=== PATIENT | male | born 1980 | race Caucasian/White ===

== ENCOUNTER 2016-09-19 21:50 | Emergency (ER) | payer OTHER ==
--- NOTE | ~2016-09-19 | EKG ---
PATIENT: DHAVAL DE LEON UNIT #: [id number] Ventricular Rate: 118 BPM Atrial Rate: 118 BPM P-R Interval: 132 ms QRS Duration: 106 ms Q-T Interval: 328 ms QTC Calculation(Bezet): 459 ms P Darrow: 45 degrees Calculated R Darrow: 10 degrees Calculated T Darrow: 35 degrees Diagnosis Line: Sinus tachycardia Diagnosis Line: Otherwise normal ECG Diagnosis Line: No previous ECGs available Diagnosis Line: Confirmed by JUNIOR DIAZ MD ([id number]) on Diagnosis Line: 09/20/2016 9:39:49 PM INTERPRETING MD: EMILY MATTHEWS
--- NOTE | ~2016-09-19 | CR63 ---
[facility] A Service of [facility] RADIOLOGY TEXT RESULTS PATIENT: DHAVAL DE LEON LOCATION: [facility] : 84 UNIT #: [id number] AGE: [address]: Pj Resendez MD SEX: M ORDER DR: [id number] [facility] [address] [place], [place] [address] [id number] MR#: [id number] Acc #: [id number] NAME: DHAVAL DE LEON : 1980 SEX: M STUDY DATE/TIME: 09/19/2016 22:34 UNIT: [facility] ROOM: STUDY DESCRIPTION: CR Chest 2 View Attending Physician: Pj Resendez M.D. Ordering Physician: Pj Resendez M.D. Primary Care Physician: No Primary Care Physician MEDICAL IMAGING REPORT This report is preliminary unless electronic signature is present EXAM Chest PA and lateral 09/19/2016 HISTORY Cough and cold symptoms for 1 week. Chest congestion. Smoking history for over 10 years. FINDINGS PA and lateral examination of the chest upright shows a good expansion of the parenchyma with a normal distribution of the pulmonary vascularity. There is no indication of congestion, effusion, infiltrate, tumor, or nodular density. The pleural reflections and diaphragmatic contours are normal. The cardiac silhouette and mediastinal anatomy is within normal limits. IMPRESSION Normal chest. Dictated by... Parker Lynch M.D. THIS IS AN ELECTRONICALLY VERIFIED REPORT Parker Lynch M.D. at 09/20/2016 2:14 PM BLADE/beronica TD: 09/20/2016 09:24 JOB #: [id number] MEDICAL IMAGING REPORT Page 1 of 1 COPY
[~2016-09-19 21:50] MED LIST: ALBUTEROL17 GM INH; BACTRIM DS TABL1 TAB PO; DELTASONE20 MG PO; DICLOFENAC PO; FIORICET 50-321 EACH PO; FLEXERIL PO; FLEXERIL10 MG PO; IBUPROFEN PO; IBUPROFEN800 MG PO; LIORESAL10 MG PO; LORTAB 101 TAB 10/5 PO; LORTAB 5/500 TA1 TA1 PO; MEDROL4 MG/DOSE- PO; MOBIC15 MG PO; NO MEDICATIONS; PEN-VEE K PO; PREDNISONE PO; PRINIVIL5 MG PO; TESSALON200 MG PO; TYLENOL #3 PO; VIBRAMYCIN100 M1 PO; VICODIN PO
[2016-09-20 00:31] LABS: AMPHETAMINE NEG (NEG); BARBITURATES NEG (NEG); BENZODIAZEPINES NEG (NEG); COCAINE NEG (NEG); MARIJUANA NEG (NEG); OPIATES NEG (NEG); TRICYCLIC ANTIDEPRESSANTS NEG (NEG); U METHADONE NEG (NEG)
[2016-09-20 00:35] LABS: BASOPHIL# 0.1 X10e3 (0-0.3); BASOPHIL% 0.6 % (0-2.5); DIFF IND NO; EOSINOPHIL# 0.1 X10e3 (0-0.7); EOSINOPHIL% 1.6 % (0.0-7.0); HEMOGLOBIN 16.6 gm/dL (13.0-16.0); LYMPHOCYTE# 1.3 X10e3 (1.0-3.5); LYMPHOCYTE% 15.8 % (17.0-45.0); MEAN CORPUSCULAR HEMOGLOBIN 30.7 PG (28-34); MEAN CORPUSCULAR HGB CONC 34.5 g/dL (30-36); MEAN PLATELET VOLUME 7.4 FL (6.5-11.5); MONOCYTE# 0.6 X10e3 (0-1.0); MONOCYTE% 6.9 % (3.0-12.0); NEUTROPHIL# 6.1 X10e3 (1.5-7.1); NEUTROPHIL% 75.1 % (40-75); PLATELET COUNT 209 X10e3 (140-420); RED CELL DISTRIBUTION WIDTH 13.3 % (11.0-15.5); WHITE BLOOD COUNT 8.2 X10e3 (4.0-10.5)
[2016-09-20 00:44] LABS: INFLUENZA A NEG (NEG); INFLUENZA B NEG (NEG)
[2016-09-20 00:45] LABS: POC - CKMB 1.5 ng/mL (0.0-7.9); POC - TROPONIN <0.05 ng/mL (<=0.05)
[2016-09-20 00:50] LABS: PARTIAL THROMBOPLASTIN TIME 25.4 SECONDS (23.5-31.3); PROTHROMBIN TIME (PATIENT) 10.2 SECONDS (9.6-11.5)
[2016-09-20 00:58] LABS: ALBUMIN SERUM 4.4 g/dL (3.5-5.0); ALKALINE PHOSPHATASE 59 U/L (32-92); ALT (SGPT) 61 U/L (10-40); AST (SGOT) 32 U/L (10-42); BILIRUBIN, DIRECT 0.1 mg/dL (0.0-0.2); BILIRUBIN,INDIRECT 0.5 mg/dL (0.0-0.9); BILIRUBIN,TOTAL 0.6 mg/dL (0.2-2.0); BLOOD UREA NITROGEN 8 mg/dL (9-23); BUN/CREATININE RATIO 6.66; CALCIUM SERUM 8.9 mg/dL (8.4-10.2); CARBON DIOXIDE 24 mmol/L (22-31); CHLORIDE 103 mmol/L (100-111); CREATININE SERUM 1.2 mg/dL (0.6-1.4); GLUCOSE FASTING 108 mg/dL (70-110); POTASSIUM 3.6 mmol/L (3.5-5.1); PROTEIN TOTAL SERUM 7.4 g/dL (6.0-8.3); SODIUM 135 mmol/L (135-145)
[2016-09-20 01:02] LABS: ALCOHOL BLOOD <5 mg/dL (0)
== END 2016-09-20 02:25 | disposition home or self-care (01) ==
LOC: CED 21:50
PROVIDERS: Emergency Medicine
DX: J40 Bronchitis, not specified as acute or chronic (principal); R42 Dizziness and giddiness; I10 Essential (primary) hypertension
CPT/HCPCS: 36415; 71010; 71020; 80048; 80076; 80307; 82553; 84484; 85025; 85379; 85610; 85730; 87804; 93005; 94640; 96360; 99284; G0480